=== PATIENT | female | born 1975 | race Two or more races ===

== ENCOUNTER 2017-06-01 13:57 | Emergency (ER) | payer MEDICAID ==
[~2017-06-01] VITALS: Ht 157.5 cm; Wt 93.0 kg
[~2017-06-01 13:57] MED LIST: INSUPOW SC
[2017-06-01 14:31] LABS: Urine Bilirubin Negative (Negative); Urine Blood 1+ /uL (Negative); Urine Color Yellow (Yellow); Urine Glucose 4+ mg/dL (Normal); Urine Ketone Negative (Negative); Urine Nitrite Negative (Negative); Urine RBC 3 /hpf (0 - 4); Urine Squamous Epithelial Cell FEW /hpf (<5); Urine Urobilinogen Normal (Negative)
[2017-06-01 15:05] LABS: Albumin 2.6 g/dL (3.4-5.0); BUN/Creatinine Ratio 17.6; Bilirubin, Total 0.1 mg/dL (0.2-1.0); Calcium 8.2 mg/dL (8.5-10.1); Total Protein 6.8 g/dL (6.4-8.2)
[2017-06-01 17:43] VITALS: BP 154/78
[2017-06-01] MEDS ORDERED: SODIUM CHLORIDE 0.9% 1,000 ML IV ONE (18:00)
[2017-06-01] MEDS ORDERED: InsuLIN REG 1unit/0.01ml Soln (100units/ml) ONE (18:01)
[2017-06-01] MEDS ORDERED: InsuLIN REG 1unit/0.01ml Soln (100units/ml) SC ONE (18:15)
== END 2017-06-01 19:27 | disposition home or self-care (01) ==
LOC: ER 13:57
DX: E11.65 Type 2 diabetes mellitus with hyperglycemia (principal); J45.909 Unspecified asthma, uncomplicated; I10 Essential (primary) hypertension
CPT/HCPCS: 36415; 80053; 81001; 82962; 84702; 96360; 96372; 99284; J1815; J7030